=== PATIENT | female | born 1940 | race Caucasian/White ===

== ENCOUNTER 2018-09-22 10:11 | Inpatient (IN) ==
[2018-09-22] MEDS ORDERED: ONDANSETRON 4 MG/2 ML VIAL IV PRN (10:16)
[2018-09-22] MEDS ORDERED: BISACODYL 5 MG TABLET PO PRN (10:16)
[2018-09-22] MEDS ORDERED: ACETAMINOPHEN 325 MG TABLET PO PRN (10:16)
[2018-09-22] MEDS ORDERED: PHYTONADIONE 10 MG/1 ML AMP SUBCUT ONE (10:41)
[2018-09-22] MEDS: SODIUM CHLORIDE 0.9% 1,000 ML IV SCH (11:31)
[2018-09-22] MEDS: PANTOPRAZOLE 40 MG TABLET PO SCH (11:32)
[2018-09-22 11:40] LABS: Basophils # 0.1 10*3/uL (0.0-0.2); Basophils % 0.4 % (0.0-0.8); Eosinophils # 0.1 10*3/uL (0.0-0.87); Eosinophils % 0.6 % (0.00-10.9); Hematocrit 26.3 VOL% (35.7-47.0); Hemoglobin 8.1 GM/DL (12.0-16.0); Immature Granulocytes % 0.7 %; Immature Granulocytes Absolute 0.09 #; Lymphocytes # 0.9 10*3/uL (1.4-4.0); Lymphocytes % 7.3 % (21.3-54.2); Mean Corpuscular HGB Conc 30.8 GM/DL (32-36); Mean Corpuscular Hemoglobin 26 PG (27-34); Mean Corpuscular Volume 85.1 FL (87-102); Mean Platelet Volume 9.5 FL (9.6-12.0); Monocytes % 8.2 % (1.7-12.7); NRBC # 0.06 10*3/uL; Neutrophils # 10.4 10*3/uL (1.4-7.4); Neutrophils % 82.8 % (38.7-73.9); Platelet Count 394 T/CUMM (130-400); Red Blood Count 3.09 MC/CUMM (3.8-5.5); Red Cell Distribution Width 14.4 % (9.3-17.3); White Blood Count 12.6 T/CUMM (4-12)
[2018-09-22] MEDS ORDERED: POLYETHYLENE GLYCOL POWDER 17 GM PACK PO PRN (13:25)
[2018-09-22] MEDS ORDERED: SODIUM CHLORIDE 0.9% 1,000 ML IV PRN (13:25)
[2018-09-22] MEDS ORDERED: MECLIZINE 25 MG TABLET PO PRN (15:22)
[2018-09-22] MEDS: traMADol 50 MG TABLET PO PRN (19:07)
[2018-09-22] MEDS: DOCUSATE SODIUM 100 MG CAPSULE PO SCH (21:08)
[2018-09-22] MEDS: POTASSIUM CHLORIDE 8 MEQ CAPSULE PO SCH (21:08)
[2018-09-22] MEDS: ACETAMINOPHEN 500 MG TABLET PO PRN (21:10)
[2018-09-22 21:55] LABS: Hematocrit 29.1 VOL% (35.7-47.0); Hemoglobin 9.3 GM/DL (12.0-16.0)
[2018-09-22 22:19] LABS: Ferritin 55.6 ng/ml (8-252)
[2018-09-23 05:31] LABS: Basophils % 0.3 % (0.0-0.8); Eosinophils # 0.1 10*3/uL (0.0-0.87); Eosinophils % 1.1 % (0.00-10.9); Hematocrit 27.9 VOL% (35.7-47.0); Hemoglobin 8.9 GM/DL (12.0-16.0); Immature Granulocytes % 1.1 %; Immature Granulocytes Absolute 0.08 #; Lymphocytes % 14.7 % (21.3-54.2); Mean Corpuscular HGB Conc 31.9 GM/DL (32-36); Mean Corpuscular Hemoglobin 28 PG (27-34); Mean Corpuscular Volume 86.4 FL (87-102); Mean Platelet Volume 9.5 FL (9.6-12.0); Monocytes # 0.7 10*3/uL (0.11-0.8); Monocytes % 9.7 % (1.7-12.7); NRBC # 0.02 10*3/uL; Neutrophils # 5.1 10*3/uL (1.4-7.4); Neutrophils % 73.1 % (38.7-73.9); Platelet Count 253 T/CUMM (130-400); Red Blood Count 3.23 MC/CUMM (3.8-5.5); Red Cell Distribution Width 14.1 % (9.3-17.3)
[2018-09-23 05:47] LABS: PT Patient Result 82.5 SECS
[2018-09-23 05:48] LABS: INR 7.7
[2018-09-23] MEDS: SODIUM CHLORIDE 0.9% 1,000 ML IV SCH ×2 (09:17→20:39)
[2018-09-23] MEDS: FUROSEMIDE 40 MG TABLET PO SCH (09:18)
[2018-09-23] MEDS: PANTOPRAZOLE 40 MG TABLET PO SCH (09:18)
[2018-09-23] MEDS: MONTELUKAST 10 MG TABLET PO SCH (09:18)
[2018-09-23] MEDS: CITALOPRAM 40 MG TABLET PO SCH (09:18)
[2018-09-23] MEDS: POTASSIUM CHLORIDE 8 MEQ CAPSULE PO SCH ×2 (09:18→20:37)
[2018-09-23] MEDS: DOCUSATE SODIUM 100 MG CAPSULE PO SCH ×2 (09:18→20:37)
[2018-09-23] MEDS: EZETIMIBE 10 MG TABLET PO SCH (09:18)
[2018-09-23] MEDS: SOLIFENACIN 5 MG TABLET PO SCH (09:18)
[2018-09-23] MEDS: traMADol 50 MG TABLET PO PRN (11:08)
[2018-09-24 06:16] LABS: Basophils % 0.4 % (0.0-0.8); Eosinophils # 0.1 10*3/uL (0.0-0.87); Eosinophils % 1.9 % (0.00-10.9); Hematocrit 26.9 VOL% (35.7-47.0); Hemoglobin 8.5 GM/DL (12.0-16.0); Immature Granulocytes % 0.8 %; Immature Granulocytes Absolute 0.04 #; Lymphocytes # 0.9 10*3/uL (1.4-4.0); Lymphocytes % 17.7 % (21.3-54.2); Mean Corpuscular HGB Conc 31.6 GM/DL (32-36); Mean Corpuscular Hemoglobin 28 PG (27-34); Mean Corpuscular Volume 87.9 FL (87-102); Mean Platelet Volume 9.1 FL (9.6-12.0); Monocytes # 0.5 10*3/uL (0.11-0.8); Neutrophils # 3.6 10*3/uL (1.4-7.4); Neutrophils % 69.2 % (38.7-73.9); Platelet Count 252 T/CUMM (130-400); Red Blood Count 3.06 MC/CUMM (3.8-5.5); Red Cell Distribution Width 14.5 % (9.3-17.3); White Blood Count 5.2 T/CUMM (4-12)
[2018-09-24 06:23] LABS: Calcium 8.3 MG/DL (8.5-10.1); Potassium 3.1 MMOL/L (3.5-5.1)
[2018-09-24 06:36] LABS: INR 2.2
[2018-09-24 06:37] LABS: PT Patient Result 24.2 SECS
[2018-09-24] MEDS: SODIUM CHLORIDE 0.9% 1,000 ML IV SCH (07:43)
[2018-09-24] MEDS ORDERED: POTASSIUM CHLORIDE RIDER 10 MEQ in PREMIX 1 EACH IV PRN (07:44)
[2018-09-24] MEDS ORDERED: MAGNESIUM SULF RIDER 4 GM in PREMIX 1 EACH IV PRN (07:45)
[2018-09-24] MEDS ORDERED: MAGNESIUM SULF RIDER 2 GM in PREMIX 1 EACH IV PRN (07:45)
[2018-09-24] MEDS: PANTOPRAZOLE 40 MG TABLET PO SCH (08:11)
[2018-09-24] MEDS: FUROSEMIDE 40 MG TABLET PO SCH (08:11)
[2018-09-24] MEDS: DOCUSATE SODIUM 100 MG CAPSULE PO SCH ×2 (08:11→20:41)
[2018-09-24] MEDS: SOLIFENACIN 5 MG TABLET PO SCH (08:11)
[2018-09-24] MEDS: POTASSIUM CHLORIDE 8 MEQ CAPSULE PO SCH ×2 (08:11→20:41)
[2018-09-24] MEDS: CITALOPRAM 40 MG TABLET PO SCH (08:11)
[2018-09-24] MEDS: MONTELUKAST 10 MG TABLET PO SCH (08:11)
[2018-09-24] MEDS: EZETIMIBE 10 MG TABLET PO SCH (08:11)
[2018-09-24] MEDS: POTASSIUM CHLORIDE 20 MEQ TABLET PO PRN ×4 (12:46→20:40)
[2018-09-24] MEDS: ACETAMINOPHEN 500 MG TABLET PO PRN (12:47)
[2018-09-24] MEDS: WARFARIN 4 MG TABLET PO SCH (17:50)
[2018-09-24] MEDS: traMADol 50 MG TABLET PO PRN (20:40)
[2018-09-25 04:55] LABS: Basophils % 0.3 % (0.0-0.8); Eosinophils # 0.1 10*3/uL (0.0-0.87); Eosinophils % 1.5 % (0.00-10.9); Hematocrit 27.6 VOL% (35.7-47.0); Hemoglobin 8.6 GM/DL (12.0-16.0); Immature Granulocytes % 0.7 %; Immature Granulocytes Absolute 0.04 #; Lymphocytes # 0.9 10*3/uL (1.4-4.0); Lymphocytes % 15.7 % (21.3-54.2); Mean Corpuscular HGB Conc 31.2 GM/DL (32-36); Mean Corpuscular Hemoglobin 28 PG (27-34); Mean Corpuscular Volume 88.7 FL (87-102); Mean Platelet Volume 8.9 FL (9.6-12.0); Monocytes # 0.7 10*3/uL (0.11-0.8); Neutrophils # 4.2 10*3/uL (1.4-7.4); Neutrophils % 70.8 % (38.7-73.9); Platelet Count 271 T/CUMM (130-400); Red Blood Count 3.11 MC/CUMM (3.8-5.5); White Blood Count 5.9 T/CUMM (4-12)
[2018-09-25 04:56] LABS: INR 1.4
[2018-09-25 05:20] LABS: Calcium 8.5 MG/DL (8.5-10.1); Osmolality,Calculated 273.5 MOS/KG (273-304); Potassium 4.2 MMOL/L (3.5-5.1)
[2018-09-25] MEDS: POTASSIUM CHLORIDE 8 MEQ CAPSULE PO SCH ×2 (08:45→20:31)
[2018-09-25] MEDS: SOLIFENACIN 5 MG TABLET PO SCH (08:45)
[2018-09-25] MEDS: DOCUSATE SODIUM 100 MG CAPSULE PO SCH ×2 (08:46→20:31)
[2018-09-25] MEDS: CITALOPRAM 40 MG TABLET PO SCH (08:46)
[2018-09-25] MEDS: PANTOPRAZOLE 40 MG TABLET PO SCH (08:46)
[2018-09-25] MEDS: EZETIMIBE 10 MG TABLET PO SCH (08:46)
[2018-09-25] MEDS: FUROSEMIDE 40 MG TABLET PO SCH (08:46)
[2018-09-25] MEDS: MONTELUKAST 10 MG TABLET PO SCH (08:46)
[2018-09-25] MEDS: traMADol 50 MG TABLET PO PRN (10:25)
[2018-09-25] MEDS ORDERED: WARFARIN 2 MG TABLET PO ONE (11:13)
[2018-09-25] MEDS: ENOXAPARIN 30 MG/0.3 ML SYRINGE SUBCUT SCH (12:02)
[2018-09-25] MEDS: CHOLECALCIFEROL 1,000 UNIT TABLET PO SCH (12:02)
[2018-09-25 13:17] LABS: Apearance,Urine Slightly Hazy (Clear); Bacteria,Urine Occasional /HPF (Few); Bilirubin,Urine Negative (Negative); Blood, Urine Negative (Negative); Glucose,Urine (UA) Negative (Negative); Hyaline Casts,Urine 1 /LPF (0-3); Ketones,Urine Negative (Negative); Mucus,Urine Occasional /LPF (Occasional); Nitrite,Urine Negative (Negative); Protein,Urine Negative; RBC,Urine 7 /HPF (0-4); Squamous Epithelial Cell,Urine Occasional /HPF (0-10); Urine Color Yellow (Yellow); Urine Specific Gravity 1.006 (1.001-1.035); Urine Urobilinogen < 2.0 EU/DL (0.2-1.0); WBC,Urine 61 /HPF (0-6)
[2018-09-25] MEDS: WARFARIN 4 MG TABLET PO SCH (17:25)
[2018-09-25] MEDS ORDERED: cefTRIAXone 1,000 MG VIAL IM SCH (19:00)
[2018-09-25] MEDS: cefTRIAXone 1,000 MG in SYRINGE 1 EACH IV SCH (21:38)
[2018-09-25] MEDS: ACETAMINOPHEN 500 MG TABLET PO PRN (21:38)
[2018-09-26 05:28] LABS: Basophils % 0.4 % (0.0-0.8); Eosinophils # 0.1 10*3/uL (0.0-0.87); Hematocrit 29.4 VOL% (35.7-47.0); Hemoglobin 9.2 GM/DL (12.0-16.0); Immature Granulocytes % 0.7 %; Immature Granulocytes Absolute 0.05 #; Lymphocytes # 0.9 10*3/uL (1.4-4.0); Mean Corpuscular HGB Conc 31.3 GM/DL (32-36); Mean Corpuscular Hemoglobin 28 PG (27-34); Mean Corpuscular Volume 88.3 FL (87-102); Mean Platelet Volume 8.8 FL (9.6-12.0); Monocytes # 0.7 10*3/uL (0.11-0.8); Monocytes % 10.3 % (1.7-12.7); Neutrophils # 5.3 10*3/uL (1.4-7.4); Neutrophils % 74.6 % (38.7-73.9); Platelet Count 290 T/CUMM (130-400); Red Blood Count 3.33 MC/CUMM (3.8-5.5); Red Cell Distribution Width 14.7 % (9.3-17.3); White Blood Count 7.2 T/CUMM (4-12)
[2018-09-26 05:40] LABS: INR 1.2; PT Patient Result 13.2 SECS
[2018-09-26 06:03] LABS: Calcium 8.9 MG/DL (8.5-10.1); Osmolality,Calculated 269.8 MOS/KG (273-304); Potassium 3.7 MMOL/L (3.5-5.1); Thyroid Stimulating Hormone 2.44 uIU/ml (0.358-3.74)
[2018-09-26] MEDS: EZETIMIBE 10 MG TABLET PO SCH (08:51)
[2018-09-26] MEDS: SOLIFENACIN 5 MG TABLET PO SCH (08:51)
[2018-09-26] MEDS: DOCUSATE SODIUM 100 MG CAPSULE PO SCH ×2 (08:51→20:49)
[2018-09-26] MEDS: POTASSIUM CHLORIDE 8 MEQ CAPSULE PO SCH ×2 (08:51→20:49)
[2018-09-26] MEDS: CITALOPRAM 40 MG TABLET PO SCH (08:51)
[2018-09-26] MEDS: CHOLECALCIFEROL 1,000 UNIT TABLET PO SCH (08:51)
[2018-09-26] MEDS: PANTOPRAZOLE 40 MG TABLET PO SCH (08:51)
[2018-09-26] MEDS: FUROSEMIDE 40 MG TABLET PO SCH (08:51)
[2018-09-26] MEDS: MONTELUKAST 10 MG TABLET PO SCH (08:52)
[2018-09-26] MEDS: ENOXAPARIN 30 MG/0.3 ML SYRINGE SUBCUT SCH (08:52)
[2018-09-26] MEDS: ACETAMINOPHEN 500 MG TABLET PO PRN ×2 (10:07→17:36)
[2018-09-26] MEDS ORDERED: WARFARIN 3 MG TABLET PO ONE (11:56)
[2018-09-26] MEDS: WARFARIN 4 MG TABLET PO SCH (17:34)
[2018-09-26] MEDS ORDERED: ENOXAPARIN 40 MG/0.4 ML SYRINGE SUBCUT SCH (21:00)
[2018-09-26] MEDS: cefTRIAXone 1,000 MG in SYRINGE 1 EACH IV SCH (21:50)
[2018-09-26] MEDS: traMADol 50 MG TABLET PO PRN (22:00)
[2018-09-27 05:29] LABS: Basophils % 0.4 % (0.0-0.8); Eosinophils % 0.5 % (0.00-10.9); Hematocrit 28.6 VOL% (35.7-47.0); Hemoglobin 9.1 GM/DL (12.0-16.0); Immature Granulocytes % 0.5 %; Immature Granulocytes Absolute 0.04 #; Lymphocytes # 0.6 10*3/uL (1.4-4.0); Lymphocytes % 7.1 % (21.3-54.2); Mean Corpuscular HGB Conc 31.8 GM/DL (32-36); Mean Corpuscular Hemoglobin 28 PG (27-34); Mean Corpuscular Volume 87.2 FL (87-102); Mean Platelet Volume 8.9 FL (9.6-12.0); Monocytes # 0.8 10*3/uL (0.11-0.8); Neutrophils # 6.8 10*3/uL (1.4-7.4); Neutrophils % 81.5 % (38.7-73.9); Platelet Count 304 T/CUMM (130-400); Red Blood Count 3.28 MC/CUMM (3.8-5.5); Red Cell Distribution Width 14.7 % (9.3-17.3); White Blood Count 8.3 T/CUMM (4-12)
[2018-09-27 05:43] LABS: INR 1.6; PT Patient Result 16.8 SECS
[2018-09-27 06:02] LABS: Calcium 9.2 MG/DL (8.5-10.1); Osmolality,Calculated 271.8 MOS/KG (273-304); Potassium 3.7 MMOL/L (3.5-5.1)
[2018-09-27] MEDS: SOLIFENACIN 5 MG TABLET PO SCH (08:32)
[2018-09-27] MEDS: FUROSEMIDE 40 MG TABLET PO SCH (08:32)
[2018-09-27] MEDS: EZETIMIBE 10 MG TABLET PO SCH (08:33)
[2018-09-27] MEDS: CITALOPRAM 40 MG TABLET PO SCH (08:33)
[2018-09-27] MEDS: POTASSIUM CHLORIDE 8 MEQ CAPSULE PO SCH ×2 (08:33→21:38)
[2018-09-27] MEDS: MONTELUKAST 10 MG TABLET PO SCH (08:33)
[2018-09-27] MEDS: CHOLECALCIFEROL 1,000 UNIT TABLET PO SCH (08:33)
[2018-09-27] MEDS: DOCUSATE SODIUM 100 MG CAPSULE PO SCH ×2 (08:33→21:38)
[2018-09-27] MEDS: PANTOPRAZOLE 40 MG TABLET PO SCH (08:34)
[2018-09-27] MEDS: ACETAMINOPHEN 500 MG TABLET PO PRN (13:58)
[2018-09-27] MEDS: cefTRIAXone 1,000 MG in SYRINGE 1 EACH IV SCH (21:38)
[2018-09-27] MEDS: APIXABAN 2.5 MG TABLET PO SCH (21:38)
[2018-09-28 05:17] LABS: Basophils % 0.3 % (0.0-0.8); Eosinophils # 0.1 10*3/uL (0.0-0.87); Eosinophils % 1.5 % (0.00-10.9); Hematocrit 29.1 VOL% (35.7-47.0); Immature Granulocytes % 0.7 %; Immature Granulocytes Absolute 0.04 #; Lymphocytes % 16.3 % (21.3-54.2); Mean Corpuscular HGB Conc 30.9 GM/DL (32-36); Mean Corpuscular Hemoglobin 27 PG (27-34); Mean Corpuscular Volume 87.9 FL (87-102); Monocytes # 0.6 10*3/uL (0.11-0.8); Monocytes % 10.5 % (1.7-12.7); Neutrophils # 4.1 10*3/uL (1.4-7.4); Neutrophils % 70.7 % (38.7-73.9); Platelet Count 322 T/CUMM (130-400); Red Blood Count 3.31 MC/CUMM (3.8-5.5); Red Cell Distribution Width 14.6 % (9.3-17.3); White Blood Count 5.8 T/CUMM (4-12)
[2018-09-28 05:38] LABS: Calcium 9.5 MG/DL (8.5-10.1); Osmolality,Calculated 272.7 MOS/KG (273-304); Potassium 3.6 MMOL/L (3.5-5.1)
[2018-09-28] MEDS: ACETAMINOPHEN 500 MG TABLET PO PRN (06:32)
[2018-09-28 07:30] VITALS: BP 99/55
[2018-09-28] MEDS: FUROSEMIDE 40 MG TABLET PO SCH (09:18)
[2018-09-28] MEDS: CITALOPRAM 40 MG TABLET PO SCH (09:18)
[2018-09-28] MEDS: POTASSIUM CHLORIDE 8 MEQ CAPSULE PO SCH (09:18)
[2018-09-28] MEDS: EZETIMIBE 10 MG TABLET PO SCH (09:18)
[2018-09-28] MEDS: CHOLECALCIFEROL 1,000 UNIT TABLET PO SCH (09:18)
[2018-09-28] MEDS: MONTELUKAST 10 MG TABLET PO SCH (09:18)
[2018-09-28] MEDS: APIXABAN 2.5 MG TABLET PO SCH (09:18)
[2018-09-28] MEDS: SOLIFENACIN 5 MG TABLET PO SCH (09:18)
[2018-09-28] MEDS: DOCUSATE SODIUM 100 MG CAPSULE PO SCH (09:19)
[2018-09-28] MEDS: PANTOPRAZOLE 40 MG TABLET PO SCH (09:19)
[2018-09-28] MEDS ORDERED: NITROFURANTOIN MACRO/MONO 100 MG CAPSULE PO SCH (21:00)
== END 2018-09-28 11:12 | disposition swing bed (61) | DRG 813 ==
LOC: N.2W 10:36 → N.2E 12:27
PROVIDERS: ADMIT Internal Medicine; ATTEND Internal Medicine

== ENCOUNTER 2021-04-09 05:05 | Inpatient (IN) ==
[2021-04-02 15:58] LABS: Bilirubin,Urine Negative (Negative); Blood, Urine Negative (Negative); Glucose,Urine (UA) Negative (Negative); Hyaline Casts,Urine 63 /LPF (0-3); Ketones,Urine Negative (Negative); Mucus,Urine Occasional /LPF (Occasional); Nitrite,Urine Negative (Negative); Protein,Urine Negative; RBC,Urine <1 /HPF (0-4); Squamous Epithelial Cell,Urine Occasional /HPF (0-10); Urine Appearance CLEAR (Clear); Urine Color Yellow (Yellow); Urine Specific Gravity 1.013 (1.001-1.035); Urine Urobilinogen < 2.0 EU/DL (0.2-1.0)
[2021-04-09] MEDS ORDERED: VANCOMYCIN INJ 1,000 MG in SODIUM CHLORIDE 0.9% 250 ML IV ONE (06:00)
[2021-04-09 07:03] LABS: PT Patient Result 10.9 SECS (10.5-12.0); Partial Thromboplastin Time 25.1 SECS (23.9-33.8)
[2021-04-09] MEDS ORDERED: KETAMINE 500 MG/10 ML VIAL ONE (07:44)
[2021-04-09] MEDS ORDERED: fentaNYL 100 MCG/2 ML VIAL ONE ×2 (07:44→10:10)
[2021-04-09] MEDS ORDERED: SODIUM CHLORIDE 0.9% 250 ML IV ONE (07:47)
[2021-04-09] MEDS ORDERED: propofoL 200 MG/20 ML VIAL IV ONE ×2 (07:47→10:14)
[2021-04-09] MEDS ORDERED: TRANEXAMIC ACID 1,000 MG/10 ML VIAL ONE (07:47)
[2021-04-09] MEDS ORDERED: LIDOCAINE 2% 5 ML VIAL ONE (07:47)
[2021-04-09] MEDS ORDERED: SODIUM CHLORIDE 0.9% 100 ML IV ONE (07:47)
[2021-04-09] MEDS ORDERED: BACITRACIN OINT 0.9 GM PACK TOP ONE (07:48)
[2021-04-09] MEDS ORDERED: MIDAZOLAM 2 MG/2 ML VIAL ONE (08:04)
[2021-04-09] MEDS ORDERED: DEXAMETHASONE 4 MG/1 ML VIAL ONE (08:30)
[2021-04-09] MEDS ORDERED: LACTATED RINGERS 1,000 ML IV SCH (08:30)
[2021-04-09] MEDS ORDERED: BUPIVACAINE MPF 0.25% 30 ML VIAL ONE (08:30)
[2021-04-09] MEDS ORDERED: ePHEDrine 50 MG/ML VIAL ONE (09:44)
[2021-04-09] MEDS ORDERED: ACETAMINOPHEN INJ 1,000 MG/100 ML VIAL IV ONE (10:13)
[2021-04-09] MEDS ORDERED: SEVOFLURANE 1 UNIT/15 MINUTE INH ONE (10:13)
[2021-04-09] MEDS ORDERED: ROCURONIUM 50 MG/5 ML VIAL IV ONE (10:14)
[2021-04-09] MEDS ORDERED: HYDROmorphone 2 MG/1 ML VIAL ONE ×2 (10:39→11:20)
[2021-04-09] MEDS ORDERED: ONDANSETRON 4 MG/2 ML VIAL IV PRN ×2 (10:58→11:27)
[2021-04-09] MEDS ORDERED: MORPHINE 4 MG/1 ML VIAL IV PRN ×2 (10:58)
[2021-04-09] MEDS ORDERED: MAGNESIUM HYDROXIDE SUSP 30 ML UDCUP PO PRN (10:58)
[2021-04-09] MEDS: HYDROmorphone 2 MG/1 ML VIAL IV PRN ×4 (11:21→12:11)
[2021-04-09] MEDS ORDERED: KETOROLAC 30 MG/1 ML VIAL ONE (11:54)
[2021-04-09] MEDS: KETOROLAC 15 MG/1 ML VIAL IV SCH ×4 (12:10→22:46)
[2021-04-09] MEDS: LACTATED RINGERS 1,000 ML IV SCH (15:32)
[2021-04-09] MEDS: APIXABAN 2.5 MG TABLET PO SCH (20:42)
[2021-04-09] MEDS: POTASSIUM CHLORIDE 8 MEQ CAPSULE PO SCH (20:42)
[2021-04-09] MEDS: DOCUSATE SODIUM 100 MG CAPSULE PO SCH (20:42)
[2021-04-10] MEDS: LACTATED RINGERS 1,000 ML IV SCH (00:37)
[2021-04-10] MEDS: KETOROLAC 15 MG/1 ML VIAL IV SCH (04:17)
[2021-04-10 05:48] LABS: Basophils % 0.2 % (0.0-0.8); Eosinophils # 0.1 10*3/uL (0.0-0.87); Eosinophils % 0.8 % (0.00-10.9); Hematocrit 31.4 VOL% (35.7-47.0); Immature Granulocytes % 0.3 %; Immature Granulocytes Absolute 0.02 #; Lymphocytes # 1.1 10*3/uL (1.4-4.0); Lymphocytes % 17.9 % (21.3-54.2); Mean Corpuscular HGB Conc 31.8 GM/DL (32-36); Mean Corpuscular Volume 91.8 FL (87-102); Mean Platelet Volume 9.4 FL (9.6-12.0); Monocytes % 11.4 % (1.7-12.7); Neutrophils % 69.4 % (38.7-73.9); Platelet Count 145 T/CUMM (130-400); Red Blood Count 3.42 MC/CUMM (3.8-5.5); Red Cell Distribution Width 13.3 % (9.3-17.3)
[2021-04-10 06:05] LABS: Osmolality,Calculated 275.5 MOS/KG (273-304); Potassium 3.8 MMOL/L (3.5-5.1)
[2021-04-10] MEDS: EZETIMIBE 10 MG TABLET PO SCH (08:36)
[2021-04-10] MEDS: CITALOPRAM 40 MG TABLET PO SCH (08:37)
[2021-04-10] MEDS: POTASSIUM CHLORIDE 8 MEQ CAPSULE PO SCH ×2 (08:37→20:56)
[2021-04-10] MEDS: PANTOPRAZOLE 40 MG TABLET PO SCH (08:37)
[2021-04-10] MEDS: MONTELUKAST 10 MG TABLET PO SCH (08:37)
[2021-04-10] MEDS: FUROSEMIDE 40 MG TABLET PO SCH (08:37)
[2021-04-10] MEDS: DOCUSATE SODIUM 100 MG CAPSULE PO SCH ×2 (08:37→20:56)
[2021-04-10] MEDS: APIXABAN 2.5 MG TABLET PO SCH ×2 (08:39→20:56)
[2021-04-11 05:19] LABS: Basophils % 0.6 % (0.0-0.8); Eosinophils # 0.1 10*3/uL (0.0-0.87); Eosinophils % 1.8 % (0.00-10.9); Hematocrit 31.5 VOL% (35.7-47.0); Immature Granulocytes % 0.6 %; Immature Granulocytes Absolute 0.04 #; Lymphocytes # 0.9 10*3/uL (1.4-4.0); Lymphocytes % 13.7 % (21.3-54.2); Mean Corpuscular HGB Conc 31.7 GM/DL (32-36); Mean Corpuscular Volume 91.8 FL (87-102); Mean Platelet Volume 9.4 FL (9.6-12.0); Monocytes % 11.4 % (1.7-12.7); Neutrophils % 71.9 % (38.7-73.9); Platelet Count 132 T/CUMM (130-400); Red Blood Count 3.43 MC/CUMM (3.8-5.5); Red Cell Distribution Width 13.3 % (9.3-17.3); White Blood Count 6.8 T/CUMM (4-12)
[2021-04-11] MEDS: FUROSEMIDE 40 MG TABLET PO SCH (08:58)
[2021-04-11] MEDS: APIXABAN 2.5 MG TABLET PO SCH ×2 (08:58→21:56)
[2021-04-11] MEDS: EZETIMIBE 10 MG TABLET PO SCH (08:58)
[2021-04-11] MEDS: CITALOPRAM 40 MG TABLET PO SCH (08:58)
[2021-04-11] MEDS: POTASSIUM CHLORIDE 8 MEQ CAPSULE PO SCH ×2 (08:58→21:56)
[2021-04-11] MEDS: PANTOPRAZOLE 40 MG TABLET PO SCH (08:59)
[2021-04-11] MEDS: MONTELUKAST 10 MG TABLET PO SCH (08:59)
[2021-04-11] MEDS: DOCUSATE SODIUM 100 MG CAPSULE PO SCH ×2 (08:59→21:56)
[2021-04-12] MEDS: APIXABAN 2.5 MG TABLET PO SCH (09:53)
[2021-04-12] MEDS: EZETIMIBE 10 MG TABLET PO SCH (09:54)
[2021-04-12] MEDS: PANTOPRAZOLE 40 MG TABLET PO SCH (09:54)
[2021-04-12] MEDS: FUROSEMIDE 40 MG TABLET PO SCH (09:54)
[2021-04-12] MEDS: CITALOPRAM 40 MG TABLET PO SCH (09:56)
[2021-04-12] MEDS: DOCUSATE SODIUM 100 MG CAPSULE PO SCH (09:56)
[2021-04-12] MEDS: MONTELUKAST 10 MG TABLET PO SCH (09:57)
[2021-04-12] MEDS: POTASSIUM CHLORIDE 8 MEQ CAPSULE PO SCH (09:57)
[2021-04-12 11:16] VITALS: BP 125/69
== END 2021-04-12 13:55 | disposition swing bed (61) | DRG 470 ==
LOC: N.OR 05:05 → N.SDSINP 05:10 → N.OR 10:25 → N.3E 10:58
PROVIDERS: ADMIT Orthopaedic Surgery; ATTEND Orthopaedic Surgery